=== PATIENT | male | born 1975 ===

== ENCOUNTER 2018-02-04 22:31 | Emergency (ER) | payer SELFPAY ==
[2018-02-04 22:45] VITALS: TEMP 98.3; O2SAT 97
--- NOTE | 2018-02-05 00:49 | C.PDOC ---
History Of Present Illness 42 y/o male presents to the ED complaining of chronic left foot pain. Patient states he had an operation on the left foot, and reports having some pain near the site. Of note patient admits to drinking unspecified quantities of scotch this evening. In addition, patient reports chest pain which he describes as a burning sensation. No other history provided due to level of intoxication Time Seen by Provider: 02/05/18 00:41 Chief Complaint (Nursing): Chest Pain History Per: Patient History/Exam Limitations: intoxication Onset/Duration Of Symptoms: Days Current Symptoms Are (Timing): Still Present Past Medical History Reviewed: Historical Data, Nursing Documentation, Vital Signs Vital Signs: Last Vital Signs Temp 98.3 F 02/04/18 22:39 Pulse 91 H 02/04/18 22:39 Resp 20 02/04/18 22:39 BP 147/99 H 02/04/18 22:39 Pulse Ox 97 02/05/18 02:01 - Medical History PMH: HTN, Hyperlipidemia Denies: Chronic Kidney Disease Other Surgeries: Left foot surgery - [facility] Procedures CLOSURE SKIN & SUBCUTANEOUS NEC (08/12/03) TETANUS TOXOID ADMINIST (02/11/07) Family History: States: No Known Family Hx - Social History Hx Alcohol Use: Yes Hx Substance Use: No - Immunization History Hx Tetanus Toxoid Vaccination: No Hx Influenza Vaccination: No Hx Pneumococcal Vaccination: No Review Of Systems Review Of Systems: ROS cannot be obtained secondary to pt's inabilty to answer questions. Physical Exam - Physical Exam Appears: No Acute Distress, Unkempt, Other (Foul-smelling, alcohol on breath) Skin: Warm, Dry Head: Atraumatic, Normacephalic Eye(s): bilateral: Normal Inspection, PERRL, EOMI Nose: Normal Oral Mucosa: Moist Neck: Normal ROM, Supple Chest: Symmetrical, Tenderness (digitally reproducible pain on palpation of left chest wall) Cardiovascular: Rhythm Regular, Other (S1, S2 within normal limits) Respiratory: No Rales, No Rhonchi, No Wheezing, Other (Lungs CTA bilaterally) Gastrointestinal/Abdominal: Soft, No Tenderness, No Distention Extremity: Normal ROM, No Deformity, Other (Incision noted to left foot, no signs of infection or erythema) Pulses: Left Dorsalis Pedis: Normal, Right Dorsalis Pedis: Normal Neurological/Psych: Other (Intoxicated, verbally responsive to some questions) ED Course And Treatment - Laboratory Results Result Diagrams: 02/05/18 01:26 02/05/18 01:26 ECG: Interpreted By Me, Viewed By Me ECG Rhythm: Sinus Rhythm (at 85 bpm, no ectopy, no acute ST/T wave changes) ECG Interpretation: Normal O2 Sat by Pulse Oximetry: 97 (RA) Pulse Ox Interpretation: Normal - Radiology CXR: Interpreted by Me, Viewed By Me CXR Interpretation: Yes: No Acute Disease, Other (Elevated right hemidiaphragm) - Other Rad XR foot X-Ray: Interpreted by Me, Viewed By Me Interpretation: No acute bony abnormalities Medical Decision Making Medical Decision Making: Initial impression: chronic left foot pain s/p ORIF, atypical chest pain, alcohol intoxication Time: 00:47 Plan: * Routine labs * EKG * Chest x-ray * X-ray of left foot Patient informed of negative imaging results. Stable for d/c home. Advised to follow up at the clinic for further evaluation. Disposition Counseled Patient/Family Regarding: Studies Performed, Diagnosis - Disposition Referrals: Alcoholics Anonymous [Outside] [facility] [Outside] Disposition: HOME/ ROUTINE Disposition Time: 02:05 Condition: GOOD Instructions: Alcohol Use - When Is Drinking a Problem?, Chest Pain That Is Not Caused by the Heart (DC) Forms: Gen Discharge Inst Urdu, [facility] ([place] Islander) Print Language: SOUTH AFRICAN - POA Present On Arrival: None - Clinical Impression Clinical Impression: Atypical chest pain, Alcohol intoxication, Chronic foot pain - Scribe Statement The provider has reviewed the documentation as recorded by the Scribe (Maye Leyva) Provider Attestation: All medical record entries made by the Scribe were at my direction and personally dictated by me. I have reviewed the chart and agree that the record accurately reflects my personal performance of the history, physical exam, medical decision making, and the department course for this patient. I have also personally directed, reviewed, and agree with the discharge instructions and disposition.
[2018-02-05 01:29] LABS: BASO % 0.8 % (0.0-2.0); EOS # 0.2 K/uL (0.0-0.7); EOS % 2.6 % (0.0-4.0); LYMPH # 2.6 K/uL (1.0-4.3); MEAN CELL VOLUME 86.5 fL (80.0-94.0); MEAN CORPUSCULAR HEMOGLOBIN 29.4 pg (27.0-31.0); MEAN PLATELET VOLUME 8.8 fL (7.2-11.7); MONO # 0.2 K/uL (0.0-0.8); MONO % 3.9 % (0.0-10.0); NEUT # 2.7 K/uL (1.8-7.0); NEUT % 47.7 % (50.0-75.0); NRBC % 0.1 % (0.0-2.0); RBC 4.42 Mil/uL (4.40-5.90); RED CELL DISTRIBUTION WIDTH 13.9 % (11.5-14.5); WHITE BLOOD COUNT 5.8 K/uL (4.8-10.8)
[2018-02-05 01:43] LABS: ALB/GLOB RATIO 1.2 (1.0-2.1); ALBUMIN 4.3 g/dL (3.5-5.0); ALT/SGPT 19 U/L (21-72); AST/SGOT 20 U/L (17-59); BLOOD UREA NITROGEN 14 mg/dL (9-20); CALCIUM 8.9 mg/dl (8.6-10.4); GFR AFRICAN-AMERICAN > 60; GFR NON-AFRICAN AMERICAN > 60; LIPASE 106 U/L (23-300)
[2018-02-05 02:20] VITALS: BP 95/65; PULSE 94; RESP 18
--- NOTE | 2018-02-05 08:07 | RAD ---
PROCEDURE: Left Foot Radiographs. HISTORY: pain COMPARISON: None. FINDINGS: BONES: Mild mid tarsal cortical hyperostoses No fracture. JOINTS: Normal. SOFT TISSUES: Normal. OTHER FINDINGS: None. IMPRESSION: No fracture lytic lesion. Minimal early degenerative type dorsal midfoot changes
--- NOTE | 2018-02-05 09:42 | RAD ---
Chest x-ray single frontal view History: Chest pain. Comparison: None available. Findings: Mild venous congestion. Right hilar prominence. Cardiomegaly. Elevated right hemidiaphragm. Degenerative changes in the spine. Impression: Mild venous congestion. Right hilar prominence. Cardiomegaly. Elevated right hemidiaphragm.
--- NOTE | 2018-02-05 11:55 | CARD ---
APPROVED REPORT EKG Measurement Heart [id number] <Conclusion> Normal sinus rhythm Normal ECG
== END 2018-02-05 02:15 | disposition home or self-care (01) ==
LOC: C.ER 22:31
DX: G89.29 Other chronic pain (principal); M79.672 Pain in left foot; R07.89 Other chest pain; F10.129 Alcohol abuse with intoxication, unspecified; Y90.8 Blood alcohol level of 240 mg/100 ml or more
CPT/HCPCS: 71045; 73620; 80053; 82948; 83690; 84484; 85025; 93005; 99284; G0480